=== PATIENT | male | born 1945 | race Caucasian/White ===

== ENCOUNTER → 2018-12-15 | Outpatient (CLI) | payer MEDICARE, OTHER ==
[~2018-12-15] MED LIST: ALLEGRA 180MG180 MG PO; ALLOPURINOL100 MG PO; CALCIUM1 CAP PO; CENTRUM1 TAB PO; CEPHALEXIN500 M1 PO; CIALIS5 MG PO; CIPRO 250MG TA250 MG PO; COLCRYS0.6 MG PO; DUO-KAPS1 CAP PO; GLUCOSAMINE & C1 TA1 PO; INDDOCIN PO; INDOCIN 25MG CA25 MG PO; INDOCIN25 MG PO; INDOCIN50 MG PO; LASIX 20MG TABL20 MG PO; LOTREL 10 MG-201 CAP PO; LOTREL 2.5 MG-11 CAP PO; MIRALAX PA17 GM/Dose PO; NORCO 325 MG-51 TAB PO; OMEGA 31000 MG PO; PERCOCET 325 MG1 TA2 PO; PREDNISONE10 MG PO; PROSCAR; PROSCAR5 MG PO; SIMVASTATIN20 MG PO; ULORIC40 MG PO; ULTRAM50 MG PO; VITAMIN B-1000 MCG/T PO; VITAMIN B121000 MC2 PO; VITAMIN C BUFF500 MG PO; VITAMIN C PUR1000 MG PO; VITAMIN C500 MG PO; VITAMIN D1000 IU PO; VITAMIN D3400 IU PO; VITAMIN E100 I3 PO; VITAMIN E1000 U/CAP PO; ZOCOR 20MG20 MG PO; ZYLOPRIM 100MG100 MG PO
== END ==
LOC: MHCPAIN 08:25
DX: G89.29 Other chronic pain (principal); M79.2 Neuralgia and neuritis, unspecified
CPT/HCPCS: G0463

== ENCOUNTER 2019-07-23 15:24 | Emergency (ER) | payer MEDICARE, OTHER ==
[~2019-07-23] VITALS: Ht 170.2 cm; Wt 75.0 kg
[2019-07-23 15:29] VITALS: TEMP 98.1
[2019-07-23 16:28] LABS: COLLECTION METHOD IN
[2019-07-23] MEDS ORDERED: LOTENSIN 1010 MG/TAB PO (16:28)
[2019-07-23] MEDS ORDERED: PROSCAR 5MG5 MG PO (16:30)
[2019-07-23] MEDS ORDERED: IMODIUM 2MG CAPS2 MG PO (16:31)
[2019-07-23] MEDS ORDERED: REFRESH CELLUVI1 SOL OP (16:32)
[2019-07-23 16:34] LABS: PH 5 (5-8); SQUAMOUS EPITHELIAL None Seen /hpf; URINE APPEARANCE Clear; URINE BACTERIA None Seen /hpf; URINE BILIRUBIN Negative (NEGATIVE); URINE BLOOD 1+ (NEGATIVE); URINE COLOR Straw; URINE GLUCOSE Negative (NEGATIVE); URINE KETONE Negative (NEGATIVE); URINE LEUKOCYTE ESTERASE Negative (NEGATIVE); URINE NITRATE Negative (NEGATIVE); URINE PROTEIN(semi-quant) Negative (NEGATIVE); URINE RBC 0-2 /hpf; URINE UROBILINOGEN Negative (NEGATIVE)
[2019-07-23 17:02] VITALS: BP 178/109; PULSE 75
[2019-07-23] MEDS ORDERED: FLOMAX 0.40.4 MG/CAP PO (17:18)
== END 2019-07-23 17:23 | disposition home or self-care (01) ==
LOC: COL.ER 15:24
PROVIDERS: Emergency Medicine
DX: N40.1 Benign prostatic hyperplasia with lower urinary tract symptoms (principal); R33.8 Other retention of urine; I10 Essential (primary) hypertension; F17.210 Nicotine dependence, cigarettes, uncomplicated

== ENCOUNTER 2019-07-23 20:04 | Emergency (ER) | payer MEDICARE, OTHER ==
[~2019-07-23] VITALS: Ht 170.2 cm; Wt 75.0 kg
[~2019-07-23 20:04] MED LIST changes: +FLOMAX 0.40.4 MG/CAP PO; +IMODIUM 2MG CAPS2 MG PO; +LOTENSIN 1010 MG/TAB PO; +PROSCAR 5MG5 MG PO; +REFRESH CELLUVI1 SOL OP
[2019-07-23 20:14] VITALS: TEMP 99.2
[2019-07-23 21:09] VITALS: BP 139/92; PULSE 88
== END 2019-07-23 21:51 | disposition home or self-care (01) ==
LOC: COL.ER 20:04
DX: N40.1 Benign prostatic hyperplasia with lower urinary tract symptoms (principal); R33.8 Other retention of urine; K64.9 Unspecified hemorrhoids; I10 Essential (primary) hypertension

== ENCOUNTER 2020-06-13 06:31 | Emergency (ER) | payer MEDICARE, OTHER ==
[~2020-06-13] VITALS: Ht 170.2 cm; Wt 77.3 kg
[2020-06-13 06:37] VITALS: TEMP 97.3
[2020-06-13 07:09] LABS: BASO # 0.1 (0.0-0.2); BASO % 0.7 % (0.0-2.0); EOS # 0.1 (0.0-0.7); EOS % 1.2 % (0-4.0); GRAN # 4.3 (1.4-6.5); GRAN % 59.6 % (42.2-75.2); HEMATOCRIT 42.7 % (42.0-52.0); HEMOGLOBIN 14.2 g/dl (13.5-18.0); LYMPH # 2.2 (1.2-3.4); LYMPH % 30.1 % (20.0-51.0); MEAN CELL VOLUME 91 fl (80.0-100.0); MEAN CORPUSCULAR HEMOGLOBIN 30 pg (27.0-31.0); MEAN CORPUSCULAR HGB CONC 33 g/dl (33.0-37.0); MEAN PLATELET VOLUME 10.6 fl (7.4-10.4); MONO # 0.6 (0.1-0.6); MONO % 8.1 % (1.7-9.3); PLATELET COUNT 214 K/mm3 (130-400); RED BLOOD COUNT 4.72 M/mm3 (4.20-5.60); REDCELL DISTRIBUTION WIDTH-CV 13.9 % (11.5-14.5)
[2020-06-13 07:16] LABS: PROTHROMBIN TIME 11.7 SECONDS (9.7-12.8)
[2020-06-13 07:19] LABS: ALBUMIN 4.1 gm/dL (3.5-5.0); BILIRUBIN,TOTAL 0.5 mg/dL (0.0-1.0); CALCIUM 10.5 mg/dL (8.4-10.2); CREATININE, serum 0.88 (0.66-1.25); POTASSIUM 4.1 mmol/L (3.4-5.0)
[2020-06-13] MEDS ORDERED: EVOXAC30 MG PO (08:16)
[2020-06-13 10:05] VITALS: BP 141/91; PULSE 73
== END 2020-06-13 10:05 | disposition short-term general hospital (02) ==
LOC: COL.ER 06:31
PROVIDERS: Emergency Medicine
DX: H34.11 Central retinal artery occlusion, right eye (principal); I10 Essential (primary) hypertension; E78.5 Hyperlipidemia, unspecified; Z87.891 Personal history of nicotine dependence; Z88.8 Allergy status to other drugs, medicaments and biological substances

== ENCOUNTER 2022-12-23 06:46 | Day surgery (SDC) | payer MEDICARE, OTHER ==
[~2022-12-23] VITALS: Ht 177.8 cm; Wt 73.0 kg
[~2022-12-23 06:46] MED LIST changes: +EVOXAC30 MG PO; +FERROUS SU325 MG/TAB PO; +VITAMIN B12 1541 TAB PO; +VITAMIN D31000 I1 PO
[2022-12-23 07:24] VITALS: BP 145/71; PULSE 66; TEMP 98.1
--- NOTE | 2022-12-23 08:04 | NUR ---
PATIENT AMBULATED TO BAY 7 WITH STEADY GAIT. ALERT AND ORIENTED X4. PATIENT STATED UNDERSTANDING OF PROCEDURE. CONSENTS SIGNED. ASSESSMENT COMPLETED. 20G IV STARTED IN RIGHT FOREARM. LR INFUSING WITHOUT DIFFICULTIES. REEL SYSTEM OPERATOR CONTACTED FOR RESOURCES FOR LIFE ALERT. NO FURTHER NEEDS NOTED. PATIENT RESTING IN COT WATCHING TV. CALL LIGHT IN REACH. MANDI MCKEON NOTIFIED THAT PATIENT TOOK HIS BENZAPRIL THIS MORNING.
[2022-12-23 08:50] VITALS: BP 108/60; PULSE 58; TEMP 97
[2022-12-23 09:05] VITALS: BP 121/60; PULSE 68
[2022-12-23 09:20] VITALS: BP 124/68; PULSE 64
--- NOTE | 2022-12-23 09:55 | NUR ---
0850 RETURNS TO ROOM 7 PER CART. ASLEEP, UNRESPONSIVE TO VERBAL STIMULI. RESP SPONTANEOUS, UNLABORED. O2 AT 6L/MASK. HOB ELEVATED 20 DEGREES. VITAL SIGNS OBTAINED. 0857 AROUSES SPONTANEOUSLY. FAMILIARIZED WITH SURROUNDINGS. DENIES DISCOMFORT. NO RECTAL BLEEDING OBSERVED. O2 OFF. HOB ELEVATED 50 DEGREES. CALL LIGHT AT SIDE. 0910 AWAKE, ALERT. TOLERATES PO JUICE AND PUDDING WITHOUT NAUSEA. 0922 AMBULATES TO BATHROOM WITH STANDBY ASSIST. REPORTS VOIDED WITHOUT DIFFICULTY 0930 DISCHARGE INSTRUCTIONS REVIEWED. PATIENT VERBALIZES UNDERSTANDING. COPY PROVIDED IN DISCHARGE FOLDER. 0940 RESPIRATORY ASSISTANT HERE TO VISIT REQUESTED BY PATIENT REGARDING LIFE ALERT SERVICES AT HOME
--- NOTE | 2022-12-23 10:04 | NUR ---
Sales Account Executive met with patient in response to SS consult. Patient is interested in a Life Alert system but advised he has difficulty affording one. SW provided brochures for local agencies that can provide these systems including [facility]. DARELL explained to patient that [facility] has Financial Assistance programs he can apply for. SW provided address and phone number for [facility]. No other needs identified at this time.
== END 2022-12-23 09:58 | disposition home or self-care (01) ==
LOC: SDCO 06:46
DX: K64.2 Third degree hemorrhoids (principal); K62.5 Hemorrhage of anus and rectum; Z87.891 Personal history of nicotine dependence
CPT/HCPCS: J2704; J7120